=== PATIENT | female | born 1985 | race American Indian/Alaskan Native ===

== ENCOUNTER 2016-08-17 14:53 | Emergency (ER) | payer OTHER ==
[2016-08-17 14:54] VITALS: BMI 32.2
[2016-08-17 15:35] VITALS: TEMP 97.7; O2SAT 98
[2016-08-17 17:00] LABS: BASO # 0.1 K/uL (0.0-0.2); BASO % 0.9 % (0.0-2.0); EOS # 0.1 K/uL (0.0-0.7); EOS % 1.8 % (0.0-4.0); HEMATOCRIT 34.2 % (34.0-47.0); LYMPH # 2.1 K/uL (1.0-4.3); LYMPH % 27.5 % (20.0-40.0); MEAN CELL VOLUME 79.3 fL (81.0-99.0); MEAN CORPUSCULAR HEMOGLOBIN 25.6 pg (27.0-31.0); MEAN CORPUSCULAR HGB CONC 32.2 g/dL (33.0-37.0); MEAN PLATELET VOLUME 9.1 fL (7.2-11.7); MONO # 0.6 K/uL (0.0-0.8); MONO % 7.9 % (0.0-10.0); RED CELL DISTRIBUTION WIDTH 13.3 % (11.5-14.5); WHITE BLOOD COUNT 7.5 K/uL (4.8-10.8)
[2016-08-17] MEDS ORDERED: Sodium Chloride 0.9% 1,000 ML IV ONE (17:08)
[2016-08-17 17:14] LABS: CHLORIDE 99 mmol/L (98-107); SODIUM 137 mmol/L (132-148)
[2016-08-17 17:15] LABS: POTASSIUM 4.2 mmol/L (3.6-5.2)
[2016-08-17 17:17] LABS: ALB/GLOB RATIO 1.1 (1.0-2.1); ALKALINE PHOSPHATASE 54 U/L (38-126); ALT/SGPT 41 U/L (9-52); AST/SGOT 34 U/L (14-36); BILIRUBIN,TOTAL 0.4 mg/dL (0.2-1.3); BLOOD UREA NITROGEN 11 mg/dL (7-17); CALCIUM 8.8 mg/dl (8.6-10.4); CARBON DIOXIDE 24 mmol/L (22-30); GFR AFRICAN-AMERICAN > 60; GLUCOSE,RANDOM 91 mg/dL (65-105); TOTAL PROTEIN 7.6 g/dL (6.3-8.3)
[2016-08-17 17:17] LABS: RBC URINE 3 /hpf (0-3); URINE BILIRUBIN NEGATIVE (NEGATIVE); URINE BLOOD NEGATIVE (NEGATIVE); URINE COLOR Yellow (YELLOW); URINE GLUCOSE (UA) NORMAL (Normal); URINE KETONE NEGATIVE (NEGATIVE); URINE LEUKOCYTE ESTERASE NEG Leu/uL (Negative); URINE PROTEIN NEGATIVE (NEGATIVE); URINE UROBILINOGEN NORMAL mg/dL (0.2-1.0); WBC URINE 2 /hpf (0-5)
[2016-08-17] MEDS ORDERED: Sodium Chloride 0.9% 1,000 ML ONE (17:21)
--- NOTE | 2016-08-17 17:43 | C.PDOC ---
History Of Present Illness 30 y/o female presents to the ED complaining of "squeezing" chest/epigastric abdominal pain since this morning at 6 am, while she was working at the [employer]. She also notes some light headedness and occasional pain to the right inguinal area. Patient admits to previous history of similar chest/epigastric pain, was evaluated in the [facility] ED and told she "has gastritis." She reports not eating today and states she did not eat during the day yesterday either, until 8 pm. Patient also notes nonproductive cough. She denies fever, SOB, palpitations, nausea/vomitingd/diarrhea, rash. Time Seen by Provider: 08/17/16 16:05 Chief Complaint (Nursing): Chest Pain History Per: Patient History/Exam Limitations: no limitations Onset/Duration Of Symptoms: Hrs, Persistent Current Symptoms Are (Timing): Still Present Quality: Squeezing Recent travel outside of the [facility]: No Past Medical History Reviewed: Historical Data, Nursing Documentation, Vital Signs Vital Signs: Last Vital Signs Temp 97.7 F 08/17/16 15:32 Pulse 62 08/17/16 18:35 Resp 18 08/17/16 18:35 BP 124/60 08/17/16 18:35 Pulse Ox 98 08/17/16 18:43 - Medical History PMH: No Chronic Diseases Surgical History: No Surg Hx Family History: States: No Known Family Hx - Social History Hx Tobacco Use: No Hx Alcohol Use: No Hx Substance Use: No - Immunization History Hx Tetanus Toxoid Vaccination: Yes (2014) Hx Influenza Vaccination: Yes (01/2016) Hx Pneumococcal Vaccination: No Review Of Systems Except As Marked, All Systems Reviewed And Found Negative. Constitutional: Negative for: Fever Cardiovascular: Positive for: Chest Pain ("squeezing"), Light Headedness Respiratory: Positive for: Cough (mild). Negative for: Shortness of Breath, Sputum Gastrointestinal: Positive for: Abdominal Pain (epigastric "squeezing"). Negative for: Nausea, Vomiting, Diarrhea Genitourinary: Positive for: Other (occasional right inguinal pain) Physical Exam - Physical Exam Appears: Well, Non-toxic, No Acute Distress, Other (comfortable; speaking in full sentences) Skin: Normal Color, Warm, Dry Head: Normacephalic Eye(s): bilateral: Normal Inspection Ear(s): Bilateral: Normal Oral Mucosa: Moist Throat: Normal, No Erythema, No Exudate Neck: Normal, Supple Chest: Symmetrical, No Tenderness Cardiovascular: Rhythm Regular Respiratory: Normal Breath Sounds, No Rales, No Rhonchi, No Wheezing Gastrointestinal/Abdominal: Bowel Sounds, Soft, Tenderness (mild epigastric TTP) , No Guarding, No Rebound, Other (obese; (-) Chisholm's) Back: Normal Inspection, No CVA Tenderness Pelvic: Other (right inguinal area -no swelling, tenderness, lymphadenopathy, or erythema) Extremity: Normal ROM, No Pedal Edema, No Calf Tenderness, No Swelling Neurological/Psych: Oriented x3 ED Course And Treatment - Laboratory Results Result Diagrams: 08/17/16 16:54 08/17/16 16:54 ECG: Interpreted By Me, Viewed By Me (normal sinus rhythm at 67 bpm, normal axis , no acute ST or T wave changes) O2 Sat by Pulse Oximetry: 98 (ra) Pulse Ox Interpretation: Normal - Radiology CXR: Interpreted by Me, Viewed By Me CXR Interpretation: Yes: No Acute Disease. No: Infiltrates, Other (effusions) Progress Note: Blood Work, Urinalysis, CXR, EKG and Urine HCG ordered and reviewed. Patint given IV pepcid, IV NS bolus. Reevaluation Time: 18:30 Reassessment Condition: Improved (On reassessment, patient is resting comfortably and states she feels efrem. Pain has resolved. On exam, abdomen is soft and nontender. Blood work, Upreg, CXR and EKG unremarkable. Symptoms suspicious for GERD/gastritis/PUD/esophageal spasm. Patient given Rxs for Protonix (daily) and Pepcid (PRN), and she was instructed to follow up with GI within 1 week. She understands she should return to ED if symptoms worsen.) Disposition Counseled Patient/Family Regarding: Studies Performed, Diagnosis, Need For Followup, Rx Given - Disposition Referrals: Janneth Campbell MD [Medical Doctor] - Sultana Rodriguez [Staff Provider] - Disposition: HOME/ ROUTINE Disposition Time: 18:30 Condition: STABLE Additional Instructions: FOLLOW UP WITH GI WITHIN 1 WEEK USE PROTONIX DAILY, AND PEPCID NEEDED AVOID SPICY AND ACIDIC FOODS RETURN TO ER IF SYMPTOMS WORSEN Prescriptions: Famotidine [Pepcid] 20 mg PO BID PRN #15 tab PRN Reason: abdominal Pantoprazole [Protonix EC Tab] 20 mg PO DAILY #30 ect Instructions: Epigastric Pain (ED) Print Language: KYRGYZ - Clinical Impression Clinical Impression: Dyspepsia, Epigastric abdominal pain - Scribe Statement The provider has reviewed the documentation as recorded by the Scribe (Betty Bledsoe) Provider Attestation: All medical record entries made by the Scribe were at my direction and personally dictated by me. I have reviewed the chart and agree that the record accurately reflects my personal performance of the history, physical exam, medical decision making, and the department course for this patient. I have also personally directed, reviewed, and agree with the discharge instructions and disposition.
[2016-08-17 18:43] VITALS: BP 124/60; PULSE 62; RESP 18
--- NOTE | 2016-08-18 09:49 | RAD ---
PROCEDURE: CHEST RADIOGRAPH, 1 VIEW HISTORY: CP COMPARISON: Comparison is made to 12/19/2015 FINDINGS: LUNGS: Clear. PLEURA: No pneumothorax or pleural fluid seen. CARDIOVASCULAR: Normal. OSSEOUS STRUCTURES: No significant abnormalities. VISUALIZED UPPER ABDOMEN: Normal. OTHER FINDINGS: None. IMPRESSION: No active disease.
--- NOTE | 2016-08-29 13:16 | CARD ---
APPROVED REPORT EKG Measurement Heart [id number] <Conclusion> Normal sinus rhythm Normal ECG
== END 2016-08-17 18:44 | disposition home or self-care (01) ==
LOC: C.ER 14:53
DX: R10.13 Epigastric pain (principal)
CPT/HCPCS: 71010; 80053; 81001; 83690; 84703; 85025; 96361; 96374; 99285; J7040

== ENCOUNTER 2016-09-29 14:33 | Emergency (ER) | payer OTHER ==
[2016-09-29 14:33] VITALS: BMI 32.2
[2016-09-29 14:45] VITALS: TEMP 98.3; O2SAT 100
[2016-09-29 16:13] LABS: RBC URINE 2 /hpf (0-3); URINE BILIRUBIN NEGATIVE (NEGATIVE); URINE BLOOD NEGATIVE (NEGATIVE); URINE COLOR Yellow (YELLOW); URINE GLUCOSE (UA) NORMAL (Normal); URINE KETONE NEGATIVE (NEGATIVE); URINE LEUKOCYTE ESTERASE NEG Leu/uL (Negative); URINE PROTEIN NEGATIVE (NEGATIVE); WBC URINE 3 /hpf (0-5)
--- NOTE | 2016-09-29 16:55 | C.PDOC ---
History Of Present Illness 30 yr old female presents to the ER with sudden onset of non-radiating left lower back pain since 10am this morning. Patient states the pain is worse with movement and deep breathing. Patient denies trauma, fever, chest pain, SOB, nausea, vomiting, abdominal pain, diarrhea, dysuria, incontinence, weakness or numbness. Time Seen by Provider: 09/29/16 15:13 Chief Complaint (Nursing): Back Pain History Per: Patient History/Exam Limitations: no limitations Onset/Duration Of Symptoms: Sudden Onset (Since 10am this morning) Current Symptoms Are (Timing): Still Present Quality Of Discomfort: "Pain" Severity: Mild Associated Symptoms: denies: Incontinence, New Weakness, New Numbness Past Medical History Reviewed: Historical Data, Nursing Documentation, Vital Signs Vital Signs: Last Vital Signs Temp 98.3 F 09/29/16 14:44 Pulse 84 09/29/16 17:23 Resp 16 09/29/16 17:23 BP 135/78 09/29/16 17:23 Pulse Ox 100 09/29/16 18:45 - Medical History PMH: No Chronic Diseases Family History: States: No Known Family Hx - Social History Hx Tobacco Use: No Hx Alcohol Use: No Hx Substance Use: No - Immunization History Hx Tetanus Toxoid Vaccination: Yes (2014) Hx Influenza Vaccination: Yes (01/2016) Hx Pneumococcal Vaccination: No Review Of Systems Except As Marked, All Systems Reviewed And Found Negative. Constitutional: Negative for: Fever Cardiovascular: Negative for: Chest Pain Respiratory: Negative for: Shortness of Breath Gastrointestinal: Negative for: Nausea, Vomiting, Abdominal Pain, Diarrhea Genitourinary: Negative for: Dysuria, Incontinence Neurological: Negative for: Weakness, Numbness Physical Exam - Physical Exam Appears: Well, Non-toxic, No Acute Distress Skin: Warm, Dry, No Rash Head: Atraumatic, Normacephalic Eye(s): bilateral: Normal Inspection, PERRL, EOMI Oral Mucosa: Moist Neck: Normal, Normal ROM, Supple Chest: Symmetrical, No Tenderness Cardiovascular: Rhythm Regular, No Friction Rub, No Murmur Respiratory: Normal Breath Sounds, No Rales, No Rhonchi, No Stridor, No Wheezing Gastrointestinal/Abdominal: Soft, No Tenderness Back: No CVA Tenderness, Other ((+) Left sided paralumbar tenderness) Extremity: Normal ROM, No Tenderness, No Swelling Neurological/Psych: Oriented x3, Normal Speech, Normal Motor Gait: Steady ED Course And Treatment O2 Sat by Pulse Oximetry: 100 (on RA) Pulse Ox Interpretation: Normal Medical Decision Making Medical Decision Making: PLAN: * HCG * Urinalysis * Valium PO * Toradol IM On re-exam, the patient reports improvement of symptoms. Lungs are CTA, heart is RRR, abdomen is soft, non-tender and patient is tolerating PO well. Follow up with the medical doctor within 1-2 days without fail. Return if worsened. Disposition - Disposition Referrals: Emma Campbell MD [Staff Provider] - Disposition: HOME/ ROUTINE Disposition Time: 16:53 Condition: GOOD Additional Instructions: Follow up with the medical doctor within 1-2 days without fail. Return if worsened. 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 - Scribe Statement The provider has reviewed the documentation as recorded by the Scribe Irene Acevedo All medical record entries made by the Scribe were at my direction and personally dictated by me. I have reviewed the chart and agree that the record accurately reflects my personal performance of the history, physical exam, medical decision making, and the department course for this patient. I have also personally directed, reviewed, and agree with the discharge instructions and disposition.
[2016-09-29 17:24] VITALS: BP 135/78; PULSE 84; RESP 16
== END 2016-09-29 17:23 | disposition home or self-care (01) ==
LOC: C.ER 14:33
DX: S39.012A Strain of muscle, fascia and tendon of lower back, initial encounter (principal); X58.XXXA Exposure to other specified factors, initial encounter
CPT/HCPCS: 81001; 84703; 96372; 99284; J1885

== ENCOUNTER 2017-02-23 08:00 | Emergency (ER) | payer OTHER ==
[2017-02-23 08:00] VITALS: BMI 32.2
[2017-02-23 08:06] VITALS: RESP 20; TEMP 98.1
[2017-02-23] MEDS ORDERED: Naproxen 550 mg Tab PO STA (08:32)
[2017-02-23] MEDS ORDERED: Naproxen 550 mg Tab PO ONE (08:40)
--- NOTE | 2017-02-23 10:27 | C.PDOC ---
History Of Present Illness 31 year old female presents to Emergency Department for evaluation of right breast pain that started 3 days ago. Patient states that she feels a mass on the right breast. Notes having history of similar episode on the left breast which resolved spontaneously. Denies breast feeding. Denies fever, chills, drainage, or any other associated symptoms at this time. (Robina Mckenna) History Per: Patient History/Exam Limitations: no limitations Onset/Duration Of Symptoms: Days (3) Current Symptoms Are (Timing): Still Present Recent travel outside of the [place]: No Additional History Per: Patient Time Seen by Provider: 02/23/17 08:13 Chief Complaint (Nursing): Breast Problem Past Medical History Reviewed: Historical Data, Nursing Documentation, Vital Signs Family History: States: Unknown Family Hx - Social History Hx Tobacco Use: No Hx Alcohol Use: No Hx Substance Use: No - Immunization History Hx Tetanus Toxoid Vaccination: Yes (2014) Hx Influenza Vaccination: Yes Hx Pneumococcal Vaccination: No Vital Signs: Last Vital Signs Temp 98.1 F 02/23/17 08:05 Pulse 53 L 02/23/17 10:40 Resp 20 02/23/17 10:40 BP 124/76 02/23/17 10:40 Pulse Ox 96 02/23/17 11:59 Review Of Systems Except As Marked, All Systems Reviewed And Found Negative. Constitutional: Negative for: Fever, Chills Musculoskeletal: Positive for: Other (right breast pain) Physical Exam - Physical Exam Appears: Non-toxic, No Acute Distress Skin: Normal Color, Warm, Dry Head: Atraumatic, Normacephalic Eye(s): bilateral: Normal Inspection, EOMI Nose: Normal Oral Mucosa: Moist Neck: Normal ROM, Supple Chest: Symmetrical, Tenderness (tenderness upon palpation to linear mass at 10 o ' clock position of the right breast 3 cm away from areola, keloid at 9 o' clock position adjacent to the areola, no warmth or erythema) Cardiovascular: Rhythm Regular Respiratory: Normal Breath Sounds, No Accessory Muscle Use Gastrointestinal/Abdominal: Soft, No Tenderness Extremity: Normal ROM Neurological/Psych: Oriented x3, Normal Speech ED Course And Treatment O2 Sat by Pulse Oximetry: 96 (on RA) Pulse Ox Interpretation: Normal Progress Note: Discussed with pt that US does not evaluated malignancy, and is insructed to follow up with [facility] for possible MRI. Instructed to return to ER if symtpoms persist or worsen. Disposition - Disposition Disposition Time: 10:27 - Disposition Disposition: HOME/ ROUTINE Condition: STABLE Additional Instructions: Follow up with your primary medical doctor or clinic in 2-5 days for further evaluation. Return to the emergency department at any time if symptoms persist or worsen. Prescriptions: Naproxen [Naprosyn] 1 tab PO BID PRN #20 tab PRN Reason: Pain Instructions: Cyst (ED) Forms: [employer] (Thai) - Clinical Impression Clinical Impression: Breast mass - PA / MANAGER ELECTRONIC / Resident Statement MD/DO has reviewed & agrees with the documentation as recorded. - Scribe Statement The provider has reviewed the documentation as recorded by the Scribe - Scribe Statement Erika Vasquez All medical record entries made by the Scribe were at my direction and personally dictated by me. I have reviewed the chart and agree that the record accurately reflects my personal performance of the history, physical exam, medical decision making, and the department course for this patient. I have also personally directed, reviewed, and agree with the discharge instructions and disposition. (Robina Mckenna)
[2017-02-23 10:40] VITALS: BP 124/76; PULSE 53
--- NOTE | 2017-02-23 10:40 | US ---
HISTORY: BIRADS 3 Probably Benign Recommendation: Short-interval 6-month follow-up old female no personal history of breast cancer paternal grandmother with breast cancer- age not specified Patient presents to the ER with a right breast "Lump an tenderness in the upper outer quadrant 3 days. TECHNIQUE: Sonographic evaluation of right breast was performed. FINDINGS: RIGHT BREAST: Patient's area palpable concern actually is linear/ elongated in the right upper outer quadrant several cm from the nipple. This feels rope-like with multiple knots on it. . Directed ultrasound shows a superficial linear correlate mostly hypoechoic some beaded prominences along its course 1 of the larger areas of focal dilatation along this linearity measures 3 mm. Given physical exam in these ultrasound findings- a minimally dilated lymph vessel chain with tiny lymph nodes along this course are believed most consistent. . A minimal right lymphadenitis is a consideration. IMPRESSION: Patient's area palpable concern is a linear elongated finding in the right upper outer quadrant- rope-like with multiple knots along its course suggested . No superficial in no larger than 3 mm in size is noted. Findings are believe consistent with a lymph adenitis -nonspecific. . No abscess. No obvious mastitis per clinical exam is noted at this time. Nevertheless close continued follow-up is advised. BIRADS: BIRADS 3 Probably Benign Recommendation: Short-interval 1-month follow-up targeted right breast ultrasound recommended. At that time, entire right breast ultrasound and right axilla assessed is also suggested
[2017-02-23 11:17] VITALS: O2SAT 96
== END 2017-02-23 11:26 | disposition home or self-care (01) ==
LOC: C.ER 08:00
DX: N63.10 Unspecified lump in the right breast, unspecified quadrant (principal)

== ENCOUNTER 2017-06-18 15:27 | Emergency (ER) | payer OTHER ==
[2017-06-18 15:27] VITALS: BMI 32.2
[2017-06-18] MEDS ORDERED: Sodium Chloride 0.9% 1,000 ML IV STA (16:27)
[2017-06-18] MEDS ORDERED: Sodium Chloride 0.9% 1,000 ML ONE (16:43)
[2017-06-18 16:46] LABS: BASO % 0.5 % (0.0-2.0); EOS # 0.2 K/uL (0.0-0.7); EOS % 2.3 % (0.0-4.0); HEMOGLOBIN 11.9 g/dL (11.0-16.0); LYMPH # 2.6 K/uL (1.0-4.3); LYMPH % 38.4 % (20.0-40.0); MEAN CORPUSCULAR HEMOGLOBIN 26.4 pg (27.0-31.0); MEAN CORPUSCULAR HGB CONC 33.9 g/dL (33.0-37.0); MEAN PLATELET VOLUME 8.9 fL (7.2-11.7); MONO # 0.6 K/uL (0.0-0.8); MONO % 8.3 % (0.0-10.0); NEUT # 3.4 K/uL (1.8-7.0); NEUT % 50.5 % (50.0-75.0); NRBC % 0.1 % (0.0-2.0); RBC 4.49 Mil/uL (3.80-5.20); RED CELL DISTRIBUTION WIDTH 13.1 % (11.5-14.5); WHITE BLOOD COUNT 6.7 K/uL (4.8-10.8)
[2017-06-18 16:51] LABS: HCG,QUALITATIVE URINE NEGATIVE (NEGATIVE)
[2017-06-18 16:58] LABS: SQUAMOUS EPITHIAL 5 /hpf (0-5); URINE BILIRUBIN NEGATIVE (NEGATIVE); URINE BLOOD NEGATIVE (NEGATIVE); URINE CLARITY Clear (Clear); URINE COLOR Yellow (YELLOW); URINE GLUCOSE (UA) NORMAL (Normal); URINE LEUKOCYTE ESTERASE NEG Leu/uL (Negative); URINE NITRATE NEGATIVE (NEGATIVE); URINE PROTEIN NEGATIVE (NEGATIVE); URINE UROBILINOGEN NORMAL mg/dL (0.2-1.0)
[2017-06-18 17:01] LABS: ALB/GLOB RATIO 1.1 (1.0-2.1); ALBUMIN 4.2 g/dL (3.5-5.0); ALT/SGPT 46 U/L (9-52); AST/SGOT 33 U/L (14-36); BLOOD UREA NITROGEN 11 mg/dL (7-17); CALCIUM 9.4 mg/dl (8.6-10.4); GFR AFRICAN-AMERICAN > 60; GFR NON-AFRICAN AMERICAN > 60; LIPASE 45 U/L (23-300)
--- NOTE | 2017-06-18 18:22 | C.PDOC ---
History Of Present Illness <Kaitlynn Chawla - Last Filed: 06/18/17 18:54> <Arcadio Huber - Last Filed: 06/18/17 21:32> 31 year old female presents to ED for evaluation of abdominal pain for the last 2 days. Otherwise, denies n/v/d, constipation, dysuria, hematuria, urinary frequency, vaginal discharge, back pain, or fever. (Kaitlynn Chawla) History Per: Patient History/Exam Limitations: no limitations Onset/Duration Of Symptoms: Days Current Symptoms Are (Timing): Still Present Radiation Of Pain To:: None Quality Of Discomfort: "Pain" Associated Symptoms: denies: Loss Of Appetite, Back Pain, Chest Pain, Constipation, Urinary Symptoms Exacerbating Factors: None Alleviating Factors: None Recent travel outside of the [place]: No Additional History Per: Patient Abnormal Vaginal Bleeding: No <Kaitlynn Chawla - Last Filed: 06/18/17 18:54> <Arcadio Huber - Last Filed: 06/18/17 21:32> Time Seen by Provider: 06/18/17 16:05 Chief Complaint (Nursing): Abdominal Pain Past Medical History Reviewed: Historical Data, Nursing Documentation, Vital Signs Family History: States: Unknown Family Hx - Social History Hx Tobacco Use: No Hx Alcohol Use: No Hx Substance Use: No - Immunization History Hx Tetanus Toxoid Vaccination: Yes (2014) Hx Influenza Vaccination: Yes Hx Pneumococcal Vaccination: No <Kaitlynn Chawla - Last Filed: 06/18/17 18:54> Vital Signs: Last Vital Signs Temp 98 F 06/18/17 15:33 Pulse 89 06/18/17 15:33 Resp 80 H 06/18/17 20:16 BP 122/76 06/18/17 20:16 Pulse Ox 100 06/18/17 20:16 Review Of Systems Except As Marked, All Systems Reviewed And Found Negative. Constitutional: Negative for: Fever, Chills Gastrointestinal: Positive for: Abdominal Pain. Negative for: Nausea, Vomiting , Diarrhea, Constipation Genitourinary: Negative for: Dysuria, Frequency, Hematuria, Vaginal Discharge Musculoskeletal: Negative for: Back Pain <Kaitlynn Chawla - Last Filed: 06/18/17 18:54> Physical Exam - Physical Exam Appears: Non-toxic, No Acute Distress Skin: Normal Color, Warm, Dry Head: Atraumatic, Normacephalic Eye(s): bilateral: Normal Inspection Oral Mucosa: Moist Neck: Normal ROM, Supple Cardiovascular: Rhythm Regular, No Murmur Respiratory: Normal Breath Sounds, No Rales, No Rhonchi, No Wheezing Gastrointestinal/Abdominal: Soft, Tenderness (LLQ), No Guarding, No Rebound Back: No CVA Tenderness Extremity: Normal ROM, No Deformity Neurological/Psych: Oriented x3, Normal Speech <Kaitlynn Chawla - Last Filed: 06/18/17 18:54> ED Course And Treatment - Laboratory Results Result Diagrams: 06/18/17 16:40 06/18/17 16:40 O2 Sat by Pulse Oximetry: 99 (RA) Pulse Ox Interpretation: Normal Progress Note: Blood work, UA, Abd & Pelvis CT ordered and reviewed. Pt was given IV fluids. Pt will be signed over to Dr. Huber at 7:00pm, pending CT scan, and re-eval. <Kaitlynn Chawla - Last Filed: 06/18/17 18:54> - Laboratory Results Result Diagrams: 06/18/17 16:40 06/18/17 16:40 <Arcadio Huber - Last Filed: 06/18/17 21:32> Disposition - Disposition Disposition Time: 18:54 <Kaitlynn Chawla - Last Filed: 06/18/17 18:54> Counseled Patient/Family Regarding: Diagnosis - Disposition Disposition Time: 21:29 - POA Present On Arrival: None <Arcadio Huber - Last Filed: 06/18/17 21:32> - Disposition Referrals: [facility] [Outside] Disposition: HOME/ ROUTINE Condition: STABLE Prescriptions: Naproxen 375 mg PO TIDPC #20 tablet Instructions: Abdominal Pain (ED), Ovarian Cyst (ED) Forms: [employer] (Tongan) - Clinical Impression Clinical Impression: Abdominal pain, Ovarian cyst - PA / RECEIVABLE CLERK / Resident Statement MD/DO has reviewed & agrees with the documentation as recorded. - Scribe Statement The provider has reviewed the documentation as recorded by the Scribe <Kaitlynn Chawla - Last Filed: 06/18/17 18:54> <Arcadio Huber - Last Filed: 06/18/17 21:32> - Scribe Statement Erika Vasquez All medical record entries made by the Scribe were at my direction and personally dictated by me. I have reviewed the chart and agree that the record accurately reflects my personal performance of the history, physical exam, medical decision making, and the department course for this patient. I have also personally directed, reviewed, and agree with the discharge instructions and disposition. (Kaitlynn Chawla) Physician Patient Turnover Patient Signed Over To: Arcadio Huber Handoff Comments: Pending CT scan, and re-eval. <Kaitlynn Chawla - Last Filed: 06/18/17 18:54>
[2017-06-18] MEDS ORDERED: Iohexol 300 100 ML IJ ONE (19:09)
--- NOTE | 2017-06-18 20:41 | CT ---
EXAM: CT Abdomen and Pelvis With Intravenous Contrast CLINICAL HISTORY: 31 years old, female; Pain; Abdominal pain; Flank; Left lower quadrant (llq); Additional info: Llq pain TECHNIQUE: Axial computed tomography images of the abdomen and pelvis with intravenous contrast. All CT scans at this facility use one or more dose reduction techniques, viz.: automated exposure control; ma/kV adjustment per patient size (including targeted exams where dose is matched to indication; i.e. head); or iterative reconstruction technique. Coronal and sagittal reformatted images were created and reviewed. CONTRAST: 100 mL of omnipaque 300 administered intravenously. COMPARISON: US - PREG 1ST TRIMESTER/OB TV 2015-07-23 15:19 FINDINGS: Lower thorax: Minimal faint groundglass opacities right middle and lower lobes, nonspecific. ABDOMEN: Liver: Fatty infiltration. Gallbladder and bile ducts: No calcified stones. No ductal dilation. Pancreas: No ductal dilation. No mass. Spleen: No splenomegaly. Adrenals: No mass. Kidneys and ureters: No mass. No hydronephrosis. Stomach and bowel: No definite mural thickening. No obstruction. Appendix: Normal caliber. No inflammation. PELVIS: Bladder: Unremarkable. Reproductive: Apparent 1.8 x 1.9 x 1.5 cm hypodense lesion within LEFT adnexal region. ABDOMEN and PELVIS: Intraperitoneal space: Small free fluid within pelvis. No free air. Bones/joints: No acute fracture. Soft tissues: Tiny umbilical hernia containing fat. Vasculature: Retroaortic LEFT renal vein. No aneurysm. Lymph nodes: No pathologically enlarged lymph nodes. IMPRESSION: 1. Possible LEFT ovarian cyst. Suggest ultrasound. 2. Groundglass opacities, nonspecific. 3. Incidental/non-acute findings are described above.
[2017-06-18 21:43] VITALS: BP 136/83; PULSE 73; RESP 19; TEMP 99; O2SAT 99
== END 2017-06-18 21:54 | disposition home or self-care (01) ==
LOC: C.ER 15:27
DX: R10.9 Unspecified abdominal pain (principal); N83.202 Unspecified ovarian cyst, left side
CPT/HCPCS: 74177; 80053; 81001; 83690; 84703; 85025; 96360; 99284; J7040; Q9967

== ENCOUNTER 2017-06-29 17:37 | Emergency (ER) | payer OTHER ==
[2017-06-29 17:54] VITALS: BMI 32.5
[2017-06-29 17:58] VITALS: TEMP 99.3
--- NOTE | 2017-06-29 18:30 | C.PDOC ---
History Of Present Illness 31 y/o F c no PMHx p/w subjective fever, congestion, cough, sore throat, body aches, nausea since last night. Denies dyspnea, vomiting, diarrhea, rash, recent travel, sick contacts. Time Seen by Provider: 06/29/17 18:27 Chief Complaint (Nursing): Flu-like Symptoms Past Medical History Vital Signs: Last Vital Signs Temp 99.3 F 06/29/17 17:54 Pulse 110 H 06/29/17 17:54 Resp 20 06/29/17 17:54 BP 133/85 06/29/17 17:54 Pulse Ox 99 06/29/17 17:54 Family History: States: Unknown Family Hx - Social History Hx Tobacco Use: No Hx Alcohol Use: No Hx Substance Use: No - Immunization History Hx Tetanus Toxoid Vaccination: Yes (2014) Hx Influenza Vaccination: Yes Hx Pneumococcal Vaccination: No Review Of Systems Except As Marked, All Systems Reviewed And Found Negative. Respiratory: Negative for: Shortness of Breath Gastrointestinal: Negative for: Vomiting Physical Exam - Physical Exam Additional Physical Exam Comments: Gen: NAD Head: NC Eyes: No icterus ENT: MMM, no pharyngeal erythema or exudates Neck: No rigidity. Supple CV: Mild tachycardia Lungs: CTA b/l Abd: Soft, NT Back: No CVA tenderness Ext: No deformity Skin: No rash Neuro: Alert, no focal deficit. ED Course And Treatment O2 Sat by Pulse Oximetry: 99 Medical Decision Making Medical Decision Making: Start influenza treatment, ibuprofen, oral hydration, has appointment with OBGYN tomorrow (diagnosed with ovarian cyst here last week). Instructed to return to ED for worsening breathing, pain, stiff neck, vomiting, or any other problem. Disposition - Disposition Disposition: HOME/ ROUTINE Disposition Time: 18:30 Condition: STABLE Prescriptions: Ibuprofen [Motrin] 600 mg PO Q6 #25 tab Ondansetron ODT [Zofran ODT] 4 mg PO Q8 #12 odt Oseltamivir Phosphate [Tamiflu] 75 mg PO BID #9 capsule Instructions: Influenza (ED) Forms: [employer] ([place] Citizen), Work Excuse - Clinical Impression Clinical Impression: Influenza-like illness
[2017-06-29 19:01] VITALS: BP 133/75; PULSE 70; RESP 16; O2SAT 98
== END 2017-06-29 18:59 | disposition home or self-care (01) ==
LOC: C.ER 17:37
DX: J11.1 Influenza due to unidentified influenza virus with other respiratory manifestations (principal)

== ENCOUNTER 2018-08-18 08:47 | Emergency (ER) | payer MEDICAID, OTHER ==
[2018-08-18 08:47] VITALS: BMI 32.5
[2018-08-18 09:22] VITALS: BP 128/84; PULSE 54; RESP 16; TEMP 98.3; O2SAT 100
[2018-08-18 10:03] LABS: HCG,QUALITATIVE URINE NEGATIVE (NEGATIVE)
[2018-08-18 10:11] LABS: SQUAMOUS EPITHIAL 10 /hpf (0-5); URINE BILIRUBIN NEGATIVE (NEGATIVE); URINE BLOOD 2+ (NEGATIVE); URINE CLARITY Hazy (Clear); URINE COLOR Yellow (YELLOW); URINE GLUCOSE (UA) NORMAL (Normal); URINE LEUKOCYTE ESTERASE NEG Leu/uL (Negative); URINE PROTEIN NEGATIVE (NEGATIVE); URINE UROBILINOGEN NORMAL mg/dL (0.2-1.0)
[2018-08-18] MEDS ORDERED: Alum-Mag Hydrox-Simethicone Susp (30 mL) PO STA (10:36)
--- NOTE | 2018-08-18 11:09 | C.PDOC ---
History Of Present Illness 32 y/o female presents to the ER complaining of epigastric abdominal pain which has been present for the past 4-5 days. Patient states that she did a colon cleanse because she thought her symptoms were due to constipation. However, patient denies constipation, and reports that she is having regular bowel movements and her last bowel movement was yesterday. Patient denies fever/chills, nausea, vomiting, diarrhea, dysuria, hematuria, vaginal bleeding/discharge. Time Seen by Provider: 08/18/18 09:28 Chief Complaint (Nursing): Abdominal Pain History Per: Patient History/Exam Limitations: no limitations Onset/Duration Of Symptoms: Days Current Symptoms Are (Timing): Still Present Severity: Moderate Location Of Pain/Discomfort: Epigastric Quality Of Discomfort: Sharp, Burning, "Pain" Associated Symptoms: denies: Fever, Chills, Nausea, Vomiting, Diarrhea, Urinary Symptoms Past Medical History Reviewed: Historical Data, Nursing Documentation, Vital Signs Vital Signs: Last Vital Signs Temp 98.3 F 08/18/18 09:18 Pulse 54 L 08/18/18 09:18 Resp 16 08/18/18 09:18 BP 128/84 08/18/18 09:18 Pulse Ox 100 08/18/18 09:18 - Medical History PMH: No Chronic Diseases Other Surgeries: Hx of surgeries Family History: States: No Known Family Hx - Social History Hx Tobacco Use: No Hx Alcohol Use: No Hx Substance Use: No - Immunization History Hx Tetanus Toxoid Vaccination: Yes (2014) Hx Influenza Vaccination: Yes Hx Pneumococcal Vaccination: No Review Of Systems Constitutional: Negative for: Fever, Chills Cardiovascular: Negative for: Chest Pain, Palpitations Respiratory: Negative for: Cough, Shortness of Breath Gastrointestinal: Positive for: Abdominal Pain. Negative for: Nausea, Vomiting, Diarrhea Genitourinary: Negative for: Dysuria, Hematuria, Vaginal Discharge, Vaginal Bleeding Physical Exam - Physical Exam Appears: Well, Non-toxic, No Acute Distress Skin: Normal Color, Warm, Dry, No Rash Head: Normacephalic Eye(s): bilateral: Normal Inspection Oral Mucosa: Moist Neck: Supple Cardiovascular: Rhythm Regular Respiratory: Normal Breath Sounds, No Rales, No Rhonchi, No Wheezing Gastrointestinal/Abdominal: Bowel Sounds, Soft, Tenderness (mild epigastric TTP), No Guarding, No Rebound, Other ((-) Chisholm's, (-) McBurney's) Back: Normal Inspection, No CVA Tenderness Neurological/Psych: Oriented x3 ED Course And Treatment - Laboratory Results Lab Results: Urine Color Yellow (YELLOW) 08/18/18 09:46 Urine Clarity Hazy (Clear) 08/18/18 09:46 Urine pH 5.0 (5.0-8.0) 08/18/18 09:46 Ur Specific [place] 1.024 (1.003-1.030) 08/18/18 09:46 Urine Protein Negative mg/dL (NEGATIVE) 08/18/18 09:46 Urine Glucose (UA) Normal mg/dL (Normal) 08/18/18 09:46 Urine Ketones Negative mg/dL (NEGATIVE) 08/18/18 09:46 Urine Blood 2+ (NEGATIVE) H 08/18/18 09:46 Urine Nitrate Negative (NEGATIVE) 08/18/18 09:46 Urine Bilirubin Negative (NEGATIVE) 08/18/18 09:46 Urine Urobilinogen Normal mg/dL (0.2-1.0) 08/18/18 09:46 Ur Leukocyte Esterase Neg Alexis/uL (Negative) 08/18/18 09:46 Urine WBC (Auto) 1 /hpf (0-5) 08/18/18 09:46 Urine RBC (Auto) 2 /hpf (0-3) 08/18/18 09:46 Ur Squamous Epith Cells 10 /hpf (0-5) H 08/18/18 09:46 Urine HCG, Qual Negative (NEGATIVE) 08/18/18 09:46 Urine HCG, Qual Negative (NEGATIVE) 08/18/18 09:46 O2 Sat by Pulse Oximetry: 100 (RA) Pulse Ox Interpretation: Normal Progress Note: UA, Upreg ordered and reviewed. Patient given PO Pepcid and PO Maalox. Reevaluation Time: 11:15 Reassessment Condition: Improved (On reassessment, patient is resting comfortably and states she feels better. On exam, abdomemn is soft and nontender. Symptoms consistent with dyspepsia/GERD. Patient given Rxs for pepcid and protonix, and was instructed to follow up with GI within 1 week. 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 I have reviewed the chart and agree that the record accurately reflects my personal performance of the history, physical exam, medical decision making, and the department course for this patient. I have also personally directed, reviewed, and agree with the discharge instructions and disposition.
[2018-08-18] MEDS ORDERED: Aluminum Hydroxide/Magnesium Hydroxide Susp (30 mL) ONE (11:14)
== END 2018-08-18 11:29 | disposition home or self-care (01) ==
LOC: C.ER 08:47
DX: R10.13 Epigastric pain (principal)

== ENCOUNTER 2018-09-17 18:28 | Emergency (ER) | payer OTHER ==
[2018-09-17 18:28] VITALS: BMI 32.5
[2018-09-17 18:46] VITALS: BP 137/87; PULSE 78; RESP 16; TEMP 99; O2SAT 100
--- NOTE | 2018-09-17 19:19 | C.PDOC ---
History Of Present Illness 32-year-old female presents to the ED for evaluation of nausea, vomiting and diarrhea which began this morning. Patient states she had a suspicious shrimp dish for dinner last night. Since then, she has been tolerating PO intake consisting of muffins and seltzer water. Patient fever, chills. Time Seen by Provider: 09/17/18 19:15 Chief Complaint (Nursing): Abdominal Pain History Per: Patient History/Exam Limitations: no limitations Onset/Duration Of Symptoms: Hrs Current Symptoms Are (Timing): Still Present Quality Of Discomfort: "Pain" Associated Symptoms: Nausea, Vomiting. denies: Fever, Chills Additional History Per: Patient Past Medical History Reviewed: Historical Data, Nursing Documentation, Vital Signs Vital Signs: Last Vital Signs Temp 99 F 09/17/18 18:39 Pulse 78 09/17/18 18:39 Resp 16 09/17/18 18:39 BP 137/87 09/17/18 18:39 Pulse Ox 100 09/17/18 18:39 Primary Care Provider: [facility] - Medical History PMH: No Chronic Diseases Surgical History: No Surg Hx Family History: States: Unknown Family Hx - Social History Hx Tobacco Use: No Hx Alcohol Use: No Hx Substance Use: No - Immunization History Hx Tetanus Toxoid Vaccination: Yes (2014) Hx Influenza Vaccination: Yes Hx Pneumococcal Vaccination: No Review Of Systems Constitutional: Negative for: Fever, Chills Gastrointestinal: Positive for: Nausea, Vomiting, Diarrhea Physical Exam - Physical Exam Appears: Non-toxic, No Acute Distress, Other (morbidly obese black female ) Skin: Normal Color, Warm, Dry Head: Atraumatic, Normacephalic Eye(s): bilateral: Normal Inspection Oral Mucosa: Moist Neck: Supple Chest: Symmetrical, No Deformity, No Tenderness Cardiovascular: Rhythm Regular, No Murmur Respiratory: Normal Breath Sounds, No Rales, No Rhonchi, No Wheezing Gastrointestinal/Abdominal: Bowel Sounds (normal ), Soft, No Tenderness, No Guarding, No Rebound Extremity: Normal ROM, Capillary Refill (less than 2 seconds ) Neurological/Psych: Oriented x3, Normal Speech, Normal Cognition ED Course And Treatment O2 Sat by Pulse Oximetry: 100 (on RA) Pulse Ox Interpretation: Normal Progress Note: Zofran PO given. Medical Decision Making Medical Decision Making: ? food poisoning from shrimp dish last night benign belly now eating muffins and seltzer this afternoon preg neg last week no need to recheck tonight. Disposition Doctor Will See Patient In The: Office Counseled Patient/Family Regarding: Studies Performed, Diagnosis - Disposition Referrals: [facility] [Outside] [employer] [facility] [Outside] [facility] [Outside] [facility] [Outside] Disposition: HOME/ ROUTINE Disposition Time: 19:19 Condition: GOOD Additional Instructions: [place] BRAT diet: bananas, white rice, toast, apples x 3 days Instructions: Food Poisoning, Diarrhea and Traveler's Diarrhea, Adult (DC) Forms: [employer] (Khmer) - Clinical Impression Clinical Impression: Vomiting, Diarrhea - Scribe Statement The provider has reviewed the documentation as recorded by the Scribe (Gabrielle Vasquez) Provider Attestation: All medical record entries made by the Scribe were at my direction and personally dictated by me. I have reviewed the chart and agree that the record accurately reflects my personal performance of the history, physical exam, medical decision making, and the department course for this patient. I have also personally directed, reviewed, and agree with the discharge instructions and disposition.
== END 2018-09-17 19:30 | disposition home or self-care (01) ==
LOC: C.ER 18:28
DX: R11.2 Nausea with vomiting, unspecified (principal); R19.7 Diarrhea, unspecified
CPT/HCPCS: 96374; 99284; J2405